=== PATIENT | male | born 1995 | race African-American/Black ===

== ENCOUNTER 2024-11-24 03:07 | Emergency (ER) | payer SELFPAY ==
[~2024-11-24] VITALS: Ht 195.6 cm; Wt 124.0 kg
[2024-11-24 03:22] VITALS: BP 125/83; TEMP 36.9; O2SAT 98
[2024-11-24 03:37] VITALS: PULSE 101; RESP 12; O2SAT 96
[2024-11-24 04:05] VITALS: TEMP 98.5
[2024-11-24] MEDS: ACETAMINOPHEN 325MG TABLET PO ONE (04:05)
[2024-11-24] MEDS ORDERED: ACET-2708 MT (04:09)
== END 2024-11-24 04:17 | disposition home or self-care (01) ==
LOC: ER 03:07
DX: S60.221A Contusion of right hand, initial encounter (principal); I10 Essential (primary) hypertension; Z86.73 Personal history of transient ischemic attack (TIA), and cerebral infarction without residual deficits; Z90.49 Acquired absence of other specified parts of digestive tract; X58.XXXA Exposure to other specified factors, initial encounter; Y93.89 Activity, other specified; Y92.89 Other specified places as the place of occurrence of the external cause; Y99.8 Other external cause status
CPT/HCPCS: 73130; 99283; Z7610; A6449